=== PATIENT | female | born 2000 | race Caucasian/White ===

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

== ENCOUNTER 2018-08-17 16:09 | Emergency (ER) | payer MEDICAID ==
[~2018-08-17] VITALS: Ht 154.9 cm; Wt 57.2 kg
[~2018-08-17 16:09] MED LIST changes: +AMOX1TAB10 PO; -FAMO-18 PO; +FAMO-96 PO; +HYDR-4011 PO; -HYDR-906 PO; +IBUP800T48 PO; +ONDA4TAB13 PO
[2018-08-17 16:11] VITALS: Ht 154.9 cm; Wt 57.2 kg
--- NOTE | 2018-08-17 18:33 | ERD ---
ER Documentation Chief Complaint Chief Complaint lower abdominal pain , vomitting - LMP 04/29/18 HPI 18-year-old 16-week female presents with complaint of lower abdominal and lower back pain since last night. States the pain occurs shortly after getting into an argument. States she has had some vomiting. Denies debora tments. Denies any vaginal bleeding. Denies dysuria. Denies saddle anesthesia, incontinence, lower extremity weakness. Has a history of gastritis. Denies allergies. Denies medications. Denies surgeries. Denies alcohol, tobacco, drug use. Up to date on vaccines. ROS All systems reviewed and are negative except as per history of present illness. Medications Home Meds Active Scripts Cephalexin* (Keflex*) 500 Mg Capsule, 500 MG PO BID for 10 Days, #20 CAP Prov:SUDHA GILMORE 08/17/18 Famotidine* (Pepcid*) 20 Mg Tablet, 20 MG PO BID for 14 Days, TAB Prov:RAJNI CHÁVEZ 11/24/17 Ondansetron Hcl* (Zofran*) 4 Mg Tab, 4 MG PO Q4H PRN for NAUSEA AND OR VOMITING, #15 TAB Prov:RAJNI CHÁVEZ 11/24/17 Ibuprofen* (Motrin*) 800 Mg Tab, 800 MG PO Q6, #30 TAB Prov:VAUGHN LYNN PA-C 10/17/17 Amoxicillin/Potassium Clav (Amox-Clav 875-125 mg Tablet) 875-125 mg Tab, 1 TAB PO BID for 7 Days, #14 TAB Prov:VAUGHN LYNN PA-C 10/17/17 Famotidine* (Pepcid*) 20 Mg Tablet, 20 MG PO BID for 30 Days, TAB Prov:CHANDAN WATTERS PA-C 02/03/17 Ondansetron Hcl* (Zofran*) 4 Mg Tablet, 4 MG PO Q6H for NAUSEA AND/OR VOMITING, #30 TAB Prov:CHANDAN WATTERS PA-C 02/03/17 Ondansetron Hcl* (Zofran*) 4 Mg Tablet, 4 MG PO Q6H for NAUSEA AND/OR VOMITING, #30 TAB Prov:LOUISE ANTHONY PA-C 11/19/16 Acetaminophen* (Tylophen*) 500 Mg Capsule, 1 CAP PO Q6H PRN for PAIN AND OR ELEVATED TEMP, #30 CAP Prov:LOUISE ANTHONY PA-C 11/19/16 Hydrocodone/Acetaminophen ([place] 5-325 Tablet) 1 Each Tablet, 1 TAB PO Q6H PRN for PAIN, #12 TAB Prov:LOUIES ANTHONYC 11/19/16 Famotidine* (Pepcid*) 20 Mg Tablet, 20 MG PO BID for 14 Days, TAB Prov:LOUISE ANTHONYC 11/19/16 Cephalexin* (Keflex*) 500 Mg Capsule, 500 MG PO QID for 7 Days, CAP Prov:LOUISE ANTHONYC 11/19/16 Allergies Allergies: Coded Allergies: No Known Allergy (Unverified , 11/19/16) PMhx/Soc History of Surgery: No Anesthesia Reaction: No Hx Neurological Disorder: No Hx Respiratory Disorders: No Hx Cardiac Disorders: No Hx Psychiatric Problems: No Hx Miscellaneous Medical Probl: Yes (gastritis) Hx Alcohol Use: No Hx Substance Use: No Hx Tobacco Use: No FmHx Family History: No diabetes, No coronary disease, No other Physical Exam Vitals Vital Signs Date Temp Pulse Resp B/P (MAP) Pulse Ox O2 O2 Flow FiO2 Time Delivery Rate 08/17/18 98.2 107 18 105/64 97 16:11 (78) Physical Exam General: Well developed, well nourished. No acute distress. Eyes: No icterus, lesions, injection, or edema. Heart: RR w/o murmur, rubs, or gallops. Lungs: Clear to auscultation bilaterally w/o wheezes, crackles, rhonchi. Symmetric rise and fall. Equal breath sounds. Abdomen: Right upper quadrant tenderness with positive Rodrigues sign. Left upper quadrant tenderness. Otherwise soft, nontender, with no rigidity or guarding noted. No masses, lesions, or ecchymoses. Normoactive bowel sounds. No McBurney's point tenderness. Patient ambulatory. Back: Bilateral CVA tenderness. Full ROM. Flexion elicits lower back pain. No midline tenderness. No step offs, bony deformity, masses, erythema, or edema noted. Psych: Normal mood and affect. Result Diagram: 08/17/18 1837 08/17/18 1841 Results 24 hrs Laboratory Tests Test 08/17/18 18:33 08/17/18 18:37 08/17/18 18:41 POC Beta HCG, Qualitative POSITIVE White Blood Count 8.1 10^3/ul Red Blood Count 3.56 10^6/ul Hemoglobin 11.1 g/dl Hematocrit 33.1 % Mean Corpuscular Volume 93.0 fl Mean Corpuscular Hemoglobin 31.2 pg Mean Corpuscular 33.5 g/dl Hemoglobin Concent Red Cell Distribution Width 13.6 % Platelet Count 274 10^3/UL Mean Platelet Volume 9.6 fl Immature Granulocytes % 1.400 % Neutrophils % 71.7 % Lymphocytes % 18.6 % Monocytes % 7.4 % Eosinophils % 0.7 % Basophils % 0.2 % Nucleated Red Blood Cells % 0.0 /100WBC Immature Granulocytes # 0.110 10^3/ul Neutrophils # 5.8 10^3/ul Lymphocytes # 1.5 10^3/ul Monocytes # 0.6 10^3/ul Eosinophils # 0.1 10^3/ul Basophils # 0.0 10^3/ul Nucleated Red Blood Cells # 0.0 10^3/ul Urine Color YELLOW Urine Clarity CLOUDY Urine pH 7.0 Urine Specific [place] 1.017 Urine Ketones NEGATIVE mg/dL Urine Nitrite NEGATIVE mg/dL Urine Bilirubin NEGATIVE mg/dL Urine Urobilinogen NEGATIVE mg/dL Urine Leukocyte Esterase 1+ Lcuy/ul Urine Microscopic RBC 1 /HPF Urine Microscopic WBC 5 /HPF Urine Squamous Epithelial Cells MODERATE /HPF Urine Bacteria FEW /HPF Urine Mucus FEW /HPF Urine Hemoglobin NEGATIVE mg/dL Urine Glucose NEGATIVE mg/dL Urine Total Protein NEGATIVE mg/dl Sodium Level 137 mmol/L Potassium Level 3.6 mmol/L Chloride Level 104 mmol/L Carbon Dioxide Level 24 mmol/L Anion Gap 9 Blood Urea Nitrogen 9 mg/dl Creatinine 0.55 mg/dl Est Glomerular Filtrat > 60 mL/min Rate mL/min Glucose Level 92 mg/dl Calcium Level 9.1 mg/dl Total Bilirubin 0.1 mg/dl Direct Bilirubin 0.00 mg/dl Indirect Bilirubin 0.1 mg/dl Aspartate Amino 27 IU/L Transf (AST/SGOT) Alanine 39 IU/L Aminotransferase (ALT/SGPT) Alkaline Phosphatase 58 IU/L Total Protein 6.8 g/dl Albumin 3.8 g/dl Globulin 3.00 g/dl Albumin/Globulin Ratio 1.26 Beta HCG, Quantitative 28549.0 mIU/ml Procedures/MDM Showed leukocytes and some bacteria DIAGNOSTIC IMAGING REPORT Patient: ZHAO MCNAIR : 2000 Age: 18 Sex: F MR #: [id number] DOS: 08/17/18 0000 Ordering MD: SUDHA GILMORE Location: [facility] Room/Bed: PROCEDURE: Abdominal ultrasound, limited. CLINICAL INDICATION: Abdominal pain. TECHNIQUE: Multiple real-time images were acquired of the patient's right upper abdomen utilizing a high resolution transducer. COMPARISON: 11/24/2017. FINDINGS: The liver demonstrates normal echogenicity and size measuring 13.9 cm. There is no focal mass or intrahepatic biliary ductal dilatation. The portal vein is patent. The gallbladder is not distended. No gallstones are identified. There is no pericholecystic fluid or gallbladder wall thickening. The common bile duct measures 1.5 mm in maximal dimension. The visualized portions of the pancreas are unremarkable. No free fluid is identified. The right kidney is normal size and echogenicity measuring 11.1 cm. There is no focal renal mass or echogenic calculus identified. There is mild right-sided hydronephrosis. IMPRESSION: Mild right-sided hydronephrosis. .Miguel Cordero MD, Date Time Electronically viewed and signed by .Miguel Cordero MD, MD on 08/17/2018 20:05 .T/ CC: SUDHA GILMORE [id number] DIAGNOSTIC IMAGING REPORT Patient: ZHAO MCNAIR : 2000 Age: 18 Sex: F MR #: [id number] DOS: 08/17/18 1825 Ordering MD: SUDHA IGLMORE Location: [facility] Room/Bed: PROCEDURE: US OB CLINICAL INDICATION: . Vaginal bleeding, right upper quadrant pain TECHNIQUE: Multiple transabdominal sonographic images of the pelvis and gravid uterus were obtained. The images were reviewed on a PACS workstation. COMPARISON: None available FINDINGS: Cervix: Not delineated Gestation: Single live intrauterine gestation. Cardiac activity: 141 beats per minute. Presentation: Variable Placenta: Location: Posterior Appearance: No abruption. Amniotic Fluid: Maximum vertical pocket equals 7.4 cm Measurements: BPD = 4.34 cm, 19 weeks 1 day HC = 15.33 cm, 18 weeks 2 days AC = 14.71 cm, 20 weeks 0 days FL = 3.06 cm, 19 weeks 3 days Gestational Age: AUA estimated gestational age: 19 weeks 2 days LMP estimated gestational age: 15 weeks 1 days AUA estimated date of delivery: 01/09/2019 The EFW = 301.66 g, greater than 97 %ile based on LMP age. IMPRESSION: 1. Single live intrauterine gestation of 19 weeks 2 days by ultrasound criteria. 2. Estimated date of delivery of 01/09/2019. 3. LMP estimated gestational age: 15 weeks 1 days. RPTAT: HJES .Danial Martinez MD, MD Date Time Electronically viewed and signed by .Danial Martinez MD, MD on 08/17/2018 21:02 .S/ CC: SUDHA GILMORE [id number] ER Course: UA, CBC, CMP, RH, abdominal US, gallbladder US - All WNL. MDM: 18-year-old 16-week female presents with complaint of lower abdominal and lower back pain since last night. States the pain occurs shortly after getting into an argument. States she has had some vomiting. Denies treatments. Denies any vaginal bleeding. Denies dysuria. Denies saddle anesthesia, incontinence, lower extremity weakness. Has a history of gastritis. There was some concern for possible UTI based on lower back pain and flank tenderness so UA was ordered. Showed leukocytes and some bacteria. Because of patient's symptoms as well as status decision was made to treat for UTI with Keflex. There was some concern for cholecystitis based on abdominal pain and positive Rodrigues's so gallbladder ultrasound was ordered. Results within normal limits. Abdominal ultrasound ordered, results within normal limits. Based on patient's labs, physical exam, history, and imaging, I have low suspicion for pyelonephritis, Cauda equina, spinal abscess, spinal fracture, cholecystitis, bowel obstruction, acute abdomen, ruptured uterus, appendicitis, or any other emergent problems. Patient advised to follow-up with [employer] [employer]. Patient discharged with strict ER precautions. All questions answered at discharge. Departure Diagnosis: Primary Impression: Abdominal pain affecting Additional Impressions: Back pain affecting in second trimester UTI (urinary tract infection) during Trimester: second trimester Qualified Codes: O23.42 - Unspecified infection of urinary tract in , second trimester Condition: Stable SUDHA GILMORE Aug 17, 2018 18:33
[2018-08-17] MEDS ORDERED: CEPH-443 PO (21:08)
== END 2018-08-17 22:12 | disposition home or self-care (01) ==
LOC: FTE 16:09
DX: O26.892 Other specified pregnancy related conditions, second trimester (principal); O23.42 Unspecified infection of urinary tract in pregnancy, second trimester; O99.89 Other specified diseases and conditions complicating pregnancy, childbirth and the puerperium; M54.5 Low back pain; R10.30 Lower abdominal pain, unspecified; Z3A.19 19 weeks gestation of pregnancy
CPT/HCPCS: 36415; 76705; 76805; 80053; 81001; 81025; 84702; 85025; 86900; 86901

== ENCOUNTER 2018-12-18 04:48 | Observation (INO) | payer MEDICAID ==
[~2018-12-18] VITALS: Ht 157.5 cm; Wt 69.7 kg
[2018-12-18] MEDS ORDERED: CITRACAL PO (05:55)
[2018-12-18] MEDS ORDERED: FER325 PO (05:55)
[2018-12-18] MEDS ORDERED: PREN1TAB13 PO (05:55)
[2018-12-18 07:09] VITALS: Ht 157.5 cm; Wt 69.7 kg
[2018-12-18] MEDS ORDERED: LACTATED RINGER'S 1,000 ML IV SCH (07:20)
[2018-12-18] MEDS ORDERED: METHYLERGONOVINE 0.2 MG INJ IM PRN (07:30)
[2018-12-18] MEDS ORDERED: AMPICILLIN 2 GM/NS (PMX) 100 ML IV ONE (07:30)
[2018-12-18] MEDS ORDERED: LIDOCAINE 1% (MPF) 30 ML INJ INJ PRN (07:30)
[2018-12-18] MEDS ORDERED: OXYTOCIN 30 UNITS/LR 500 ML IV PRN (07:30)
[2018-12-18] MEDS ORDERED: CARBOPROST 250 MCG INJ IM PRN (07:30)
[2018-12-18] MEDS ORDERED: BUTORPHANOL 2 MG INJ IV PRN (07:30)
[2018-12-18] MEDS ORDERED: OXYTOCIN 30 UNITS/LR 500 ML IV SCH ×2 (07:30)
[2018-12-18] MEDS ORDERED: MISOPROSTOL 200 MCG TAB PR PRN (07:30)
--- NOTE | 2018-12-18 07:51 | TRIAGE ---
OB Triage Datetime Report Generated by CPN: 12/18/2018 07:50 Datetime: 12/18/2018 07:38 Stage of : OB Triage Maternal Assessment Level of Consciousness: Fully Conscious DTR's/Clonus: DTRs 1+ Headache: Denies Breath Sounds, Left: Clear and Equal Breath Sounds, Right: Clear and Equal Nausea/Vomiting: Denies RUQ Epigastric Pain: Denies Labor Evaluation Frequency: 1-3 Monitor Mode: External Duration (sec)2399: 40-60 Quality: Mild Pattern: Normal: <= 5 Contractions in 10 Minutes Resting Tone [place]: Relaxed Heart Rate FHR Baseline Rate: 140 Monitor Mode: External US Variability: Moderate 6-25 bpm Accelerations: 15X15 Decelerations: None Category: Category I Pain Assessment Pain Scale: 10 Pain Presence: Intermittent Pain Type: Contraction Pain Location: Back Pain Goal: 3 Membrane Status: Intact Datetime: 12/18/2018 07:12 Maternal Assessment Level of Consciousness: Fully Conscious DTR's/Clonus: DTRs 1+ Headache: Denies Blurred Vision: No Respiratory Effort: Unlabored Breath Sounds, Left: Clear and Equal Breath Sounds, Right: Clear and Equal Nausea/Vomiting: Denies RUQ Epigastric Pain: Denies Facial Edema: None Labor Evaluation Frequency: 1-3 Monitor Mode: External Duration (sec)2399: 40-60 Quality: Mild Pattern: Normal: <= 5 Contractions in 10 Minutes Resting Tone [place]: Relaxed Heart Rate FHR Baseline Rate: 140 Monitor Mode: External US Variability: Moderate 6-25 bpm Accelerations: 15X15 Decelerations: None Category: Category I Pain Assessment Pain Scale: 10 Pain Presence: Intermittent Pain Type: Contraction Pain Location: Back Pain Goal: 3 Membrane Status: Intact Datetime: 12/18/2018 07:00 Vaginal Exam Dilatation (cms): 1.0 Effacement (%): 20 Station: -3 Exam By: C BASHIR Datetime: 12/18/2018 06:45 Labor Evaluation Frequency: 2-5 Monitor Mode: External Duration (sec)2399: 50-80 Quality: Moderate Resting Tone [place]: Relaxed Heart Rate FHR Baseline Rate: 135 Monitor Mode: External US Variability: Moderate 6-25 bpm Accelerations: 15X15 Decelerations: None Category: Category I Datetime: 12/18/2018 06:00 Comments: monitors temporarily off, material handling technician at bedside for ultrasound exams Datetime: 12/18/2018 05:50 Labor Evaluation Frequency: 1.5-5 Monitor Mode: External Duration (sec)2399: 50-70 Quality: Moderate Resting Tone [place]: Relaxed Heart Rate FHR Baseline Rate: 130 Monitor Mode: External US Variability: Moderate 6-25 bpm Accelerations: 15X15 Decelerations: None Category: Category I Datetime: 12/18/2018 05:46 Time of Arrival: 12/18/2018 04:23 EGA: 39.0 Arrived By: Wheelchair Arrived From: Home Chief Complaint: spotting _ back/abdomen pain since 0000 Movement: Present Contractions: Regular Time Contractions Began: 12/18/2018 00:00 Contractions: q2-5 Rupture of Membranes: Denies Vaginal Bleeding: Normal Show Vaginal Discharge: Denies Recent Sexual Intercouse: Denies Abdominal Trauma: Not Applicable Patient Complaints: Cramping; Back Pain Additional Patient Complaints: pt had anxiety attack x1 (lasted about a min) around 0520 Time Provider Notified: 12/18/2018 05:38 Provider Notified: Initial Plan: EFM, VS, call OB, SVE BPP w/AWILDA, UA Datetime: 12/18/2018 04:51 Vaginal Exam Dilatation (cms): 1.0 Effacement (%): 20 Station: -3 Exam By: BINH WALTON Membrane Status: Intact Vaginal Bleeding: Normal Show Cervix, Consistency: Firm Cervix, Position: Posterior Presentation 'A': Cephalic Datetime: 12/18/2018 04:50 Stage of : OB Triage Monitor Mode: External Monitor Mode: External US Datetime: 12/18/2018 04:45 Stage of : OB Triage Assessment Type: Triage Maternal Assessment Level of Consciousness: Fully Conscious DTR's/Clonus: DTRs 2+; No Clonus Headache: Denies Blurred Vision: No Respiratory Effort: Unlabored; Regular Rhythm; Equal Expansion Breath Sounds, Left: Clear and Equal Breath Sounds, Right: Clear and Equal Nausea/Vomiting: Denies RUQ Epigastric Pain: Denies Lower Extremities Edema: None Degree: None Upper Extremities Edema: None Degree: None Facial Edema: None Temperature Route: Oral Fall Risk Assessment History of Falling: (0) No Secondary Diagnosis: (0) No Ambulatory Aid: (0) Bedrest/Nurse Assist IV Therapy: (0) No Gait: (0) Normal/Bedrest/Immobile Mental Status: (0) Oriented to Own Ability Fall Score: 0 Fall Risk Score Definition: No Risk: No action required Pain Assessment Pain Scale: 10 Pain Presence: Intermittent Pain Type: Cramping; Contraction Pain Location: Abdomen; Back Pain Relief Measures: Comfort Measures
[2018-12-18] MEDS ORDERED: AMPICILLIN 1 GM/NS (PMX) 50 ML IV SCH (11:30)
--- NOTE | 2018-12-18 13:33 | PN ---
Triage Information Date/Time December 18, 2018 at 07:02 Reason for visit: Uterine contractions Weeks of Gestation 18-year-old 1 para 0 at 39 weeks of gestation with estimated date of delivery December 25, 2018 Patient presents with chief complaint of uterine contractions She reports positive movement, denies vaginal bleeding or leaking fluid /Para 1 para 0 Diabetes: none Hypertention: none Objective Heart Rate: 140's Heart Rate Comments heart rate tracing category 1 Contractions: 6-10 Minutes Apart Exam Cervix fingertip/50%/-3 per nurse Results/Medications Result Diagram: 12/18/18 0800 Results 24 hrs Laboratory Tests Test 12/18/18 04:00 12/18/18 08:00 Urine Color YELLOW Urine Clarity CLOUDY A Urine pH 7.0 Urine Specific [place] 1.009 Urine Ketones NEGATIVE Urine Nitrite NEGATIVE Urine Bilirubin NEGATIVE Urine Urobilinogen NEGATIVE Urine Leukocyte Esterase 2+ H Urine Microscopic RBC 1 Urine Microscopic WBC 6 H Urine Squamous Epithelial Cells MODERATE Urine Bacteria FEW A Urine Hemoglobin NEGATIVE Urine Glucose NEGATIVE Urine Total Protein NEGATIVE White Blood Count 8.8 Red Blood Count 4.13 L Hemoglobin 12.9 Hematocrit 38.0 Mean Corpuscular Volume 92.0 Mean Corpuscular Hemoglobin 31.2 Mean Corpuscular Hemoglobin Concent 33.9 Red Cell Distribution Width 14.1 Platelet Count 297 Mean Platelet Volume 10.9 H Immature Granulocytes % 0.800 H Neutrophils % 70.0 Lymphocytes % 19.3 Monocytes % 9.2 Eosinophils % 0.5 Basophils % 0.2 Nucleated Red Blood Cells % 0.0 Immature Granulocytes # 0.070 H Neutrophils # 6.2 Lymphocytes # 1.7 Monocytes # 0.8 Eosinophils # 0.0 Basophils # 0.0 Nucleated Red Blood Cells # 0.0 Prothrombin Time 12.5 Prothrombin Time Ratio 1.0 INR International Normalized Ratio 0.92 Activated Partial Thromboplast Time 28.7 Hepatitis B Surface Antigen NEGATIVE HIV (1&2) Antibody NEGATIVE Medications Current Medications Lactated Ringer's 1,000 ml @ 125 mls/hr Q8H IV Last administered on 12/18/18at 08:14; Admin Dose 125 MLS/HR; Start 12/18/18 at 07:20 Ampicillin 50 ml @ 100 mls/hr Q4H IV ; Start 12/18/18 at 11:30 Butorphanol Tartrate (Stadol) 2 mg Q2H PRN IV .PAIN SCALE 6-10; Start 12/18/18 at 07:30 Lidocaine (Xylocaine 1% (Mpf)) 30 ml ONCE PRN INJ .EPISIOTOMY; Start 12/18/18 at 07:30 Oxytocin/Lactated Ringer's 500 ml @ 500 mls/hr ONCE POST IV ; Start 12/18/18 at 07:30 Oxytocin/Lactated Ringer's 500 ml @ 125 mls/hr POST IV ; Start 12/18/18 at 07:30 Oxytocin/Lactated Ringer's 500 ml @ 0 mls/hr ONCE PRN IV .VAGINAL BLEEDING; Start 12/18/18 at 07:30 Methylergonovine Maleate (Methergine) 0.2 mg ONCE PRN IM .VAGINAL BLEEDING; Start 12/18/18 at 07:30 Carboprost Tromethamine (Hemabate) 250 mcg ONCE PRN IM .VAGINAL BLEEDING; Start 12/18/18 at 07:30 Misoprostol (Cytotec) 1,000 mcg ONCE PRN MT .VAGINAL BLEEDING; Start 12/18/18 at 07:30 Imaging Results PROCEDURE: US OB biophysical profile. CLINICAL INDICATION: decreased movements, contractions TECHNIQUE: Multiple sonographic images of the pelvis were obtained. The images were reviewed on a PACS workstation. COMPARISON: No prior studies are available for comparison. FINDINGS: There is a single live intrauterine gestation. Cardiac activity is present with 161 beats per minute. There is a vertex presentation. The placenta is left lateral. There is no evidence of placental abruption. AWILDA = 8.7 cm. Biophysical profile: movement 2/2 tone 2/2. breathing 2/2 AWILDA 2/2 Total 8/8 RPTAT: AA . IMPRESSION: Normal biophysical profile. . .Fabiano Nguyen MD, Date Time Electronically viewed and signed by .Fabiano Nguyen MD, on 12/18/2018 06:53 .S/ CC: AUBREY TANNER MD [phone] Disposition: Discharge Assessment/Plan UA suggestive for UTI- prescription for Macrobid was given Urine cult was done kick count instructions were given Labor precautions were given Patient instructed to follow-up with her own [employer]PER[employer] in 1 to 2 days EDWARD RAYO MD December 18, 2018 13:33
== END 2018-12-18 13:00 | disposition home or self-care (01) ==
LOC: OBT 04:48 → L-D 04:48 → INTOOBSV 07:02 → L-D 07:02 → OBT 07:02 → L-D 11:22
PROVIDERS: ADMIT Obstetrics & Gynecology; ATTEND Obstetrics & Gynecology
DX: O47.1 False labor at or after 37 completed weeks of gestation (principal); Z3A.39 39 weeks gestation of pregnancy
CPT/HCPCS: 76818; 81001; 85025; 85610; 85730; 86592; 86703; 86762; 86850; 86900; 86901; 87340; J7120; Z7500; 99217; G0378; G0463